=== PATIENT | male | born 1995 | race Two or more races ===

== ENCOUNTER 2018-09-10 12:48 | Emergency (ER) | payer OTHER ==
[~2018-09-10] VITALS: Ht 170.2 cm; Wt 81.6 kg
--- NOTE | 2018-09-10 12:55 | NUR ---
Pt seen and evaluated by Dr. Frank
--- NOTE | 2018-09-10 12:55 | NUR ---
PT. VERBALIZED UNDERSTANDING OF AFTERCARE INSTRUCTIONS.Patient discharged to custody of [employer] in stable condition. Written and verbal after care instructions given. Patient verbalizes understanding of instruction.
[2018-09-10 12:56] VITALS: BP 132/74
== END 2018-09-10 12:57 ==
LOC: ER 12:50
DX: Z02.89 Encounter for other administrative examinations (principal); Y04.0XXA Assault by unarmed brawl or fight, initial encounter; Y93.89 Activity, other specified; Y92.89 Other specified places as the place of occurrence of the external cause; Y99.8 Other external cause status